=== PATIENT | female | born 1945 | race Caucasian/White ===

== ENCOUNTER 2024-09-17 14:46 | Outpatient (REF) | payer MEDICARE, SELFPAY ==
[2024-09-17 18:03] LABS: Appearance Urine Clear; Color Urine Yellow; Glucose Urine UA Negative (Negative); Leukocyte Esterase Urine Large (3+) (Negative); Nitrite Urine Negative (Negative); PH 5.5 (5.0-9.0); UMIC TRIGGER UACC YES; Urine Blood Small (1+) (Negative); Urine Ketones Negative (Negative); Urine Protein Negative (Neg-Trace)
[2024-09-17 18:29] LABS: Bacteria Urine None Seen (None Seen); Hyaline Casts Urine 0-2 /LPF (0-2); RBC Urine 0-2 /HPF (0-2); UACC Culture Trigger YES; WBC Urine 0-5 /HPF (0-5)
[2024-09-17 18:33] LABS: Erythrocyte Sedimentation Rate 6 MM/HR (0-20)
== END 2024-09-17 14:47 | disposition home or self-care (01) ==
LOC: HO.MANLDS 14:46
PROVIDERS: Visit Provider Internal Medicine
DX: R51.9 Headache, unspecified (principal); R82.998 Other abnormal findings in urine
CPT/HCPCS: 36415; 81001; 85652; 87086; 87088

== ENCOUNTER 2024-10-27 13:17 | Outpatient (REF) | payer MEDICARE, SELFPAY ==
--- OUTSIDE RECORDS SUMMARY | 2024-10-27 14:35 | XMS_ITS | Data Portability ---
Author Organization [facility] Address [address] [place] [address] Assessment Encounter Date Assessment Date Assessment LastModified by Organization Details LastModified Time 12/22/2023 12/22/2023 [id number] [place] [id number] (PROPERTY SITE MANAGER) MDM MODERATE MUST MEET 2 OUT OF 3 ELEMENTS: PROBLEMS, DATA OR RISK ELEMENT 1: PROBLEMS ADDRESSED 1 OR MORE CHRONIC ILLNESS WITH EXACERBATION OR 2 OR MORE STABLE CHRONIC ILLNESSES OR 1 UNDIAGNOSED NEW PROBLEM OR 1 ACUTE ILLNESS W/SYMPTOMS OR 1 ACUTE COMPLICATED INJURY ELEMENT 2: DATA MUST MEET 1 OF 3 CATEGORIES CATEGORY 1: REVIEW OF PRIOR EXTERNAL NOTES, REVIEW OF RESULTS, ORDERING OF EACH TEST, ASSESSMENT REQUIRING INDEPENDENT HISTORIAN OR CATEGORY 2: INDEPENDENT INTERPRETATION OF TESTS BY ANOTHER PHYSICIAN OR SPECIALIST OR CATEGORY 3: DISCUSSION OF MGT OR TEST INTERPRETATION W/EXTERNAL PHYSICIAN OR SPECIALIST ELEMENT 3: RISK RISK OF COMPLICATIONS AND/OR MORBIDITY OR MORTALITY OF PATIENT MANAGEMENT PROVIDER MUST THOROUGHLY DOCUMENT EACH ELEMENT THAT IS COVERED Not available 12/22/2023 14:05:13 04/16/2024 04/16/2024 [id number] [place] [id number] (PROPERTY SITE MANAGER) MDM MODERATE MUST MEET 2 OUT OF 3 ELEMENTS: PROBLEMS, DATA OR RISK ELEMENT 1: PROBLEMS ADDRESSED 1 OR MORE CHRONIC ILLNESS WITH EXACERBATION OR 2 OR MORE STABLE CHRONIC ILLNESSES OR 1 UNDIAGNOSED NEW PROBLEM OR 1 ACUTE ILLNESS W/SYMPTOMS OR 1 ACUTE COMPLICATED INJURY ELEMENT 2: DATA MUST MEET 1 OF 3 CATEGORIES CATEGORY 1: REVIEW OF PRIOR EXTERNAL NOTES, REVIEW OF RESULTS, ORDERING OF EACH TEST, ASSESSMENT REQUIRING INDEPENDENT HISTORIAN OR CATEGORY 2: INDEPENDENT INTERPRETATION OF TESTS BY ANOTHER PHYSICIAN OR SPECIALIST OR CATEGORY 3: DISCUSSION OF MGT OR TEST INTERPRETATION W/EXTERNAL PHYSICIAN OR SPECIALIST ELEMENT 3: RISK RISK OF COMPLICATIONS AND/OR MORBIDITY OR MORTALITY OF PATIENT MANAGEMENT PROVIDER MUST THOROUGHLY DOCUMENT EACH ELEMENT THAT IS COVERED Not available 04/16/2024 11:40:53 09/17/2024 09/17/2024 Patient presente d for medication refill. Patient tolerating medication well at current dose without adverse effects. Refilled as below. Discussed plan with patient, who expressed understanding. [place] [id number] [place] [id number] (PROPERTY SITE MANAGER) MDM HIGH MUST MEET 2 OUT OF 3 ELEMENTS: PROBLEMS, DATA OR RISK ELEMENT 1: PROBLEMS 1 OR MORE CHRONIC ILLNESS W/SEVERE EXACERBATION, PROGRESSION MAY REQUIRE HOSPITAL LEVEL CARE OR 1 ACUTE OR CHRONIC ILLNESS OR INJURY THAT POSES A THREAT TO LIFE OR BODILY FUNCTION ELEMENT 2: DATA: MUST MEET 2 OF 3 CATEGORIES CATEGORY 1 REVIEW OF PRIOR EXTERNAL NOTES REVIEW OF THE RESULTS ORDERING OF EACH TEST ASSESSMENT REQUIRING INDEPENDENT HISTORIAN(S) CATEGORY 2: INDEPENDENT INTERPRETATION OF TESTS BY ANOTHER PROVIDER/SPECIALI ST CATEGORY 3: DISCUSSION OF MGT OR TEST INTERPRETATION W/EXTERNAL PHYSICIAN/SPECIAL IST ELEMENT 3: RISK HIGH RISK OF MORBIDITY FROM ADDITIONAL DIAGNOSTIC TESTING OR TREATMENT PROVIDER MUST THOROUGHLY DOCUMENT EACH ELEMENT THAT IS COVERED The patient presented to their appointment today for multiple concerns requiring moderate to high-level decision making and took over 40-45 minutes for an adequate and appropriate history, exam, assessment and treatment plan. This appointment was done with an established patient. Not available 09/17/2024 14:40:44 Plan of Treatment Reminders Order Date Submit Date Provider Last Modified By Organization Details Last Modified Time Details Appointments NEW PROBLEM 15 2024 11:00A M CHUCK MAN Not available Not available Not available NEW PROBLEM 15 2024 10:00A M DR MATHIS Not available Not available Not available ANNUAL EXAM 2024 03:00P M DR MATHIS Not available Not available Not available Lab culture, wound - facial lesion, left side of the face 2024 025 [facility], [address] [place] [address], [place], [address], 10/27/2024 11:29:53 urinalysi s complete, reflex culture 2024 025 [facility], [address] [place] [address], [place], [address], 09/20/2024 12:12:54 erythrocy te sedimenta tion rate by jerome n method 2024 [facility], [address] [place] [address], [place], [address], 09/17/2024 14:55:22 hepatic function panel, serum 2023 [facility], [address] [place] [address], [place], [address], 04/16/2024 11:50:34 Referral None recorded. Procedures None recorded. Surgeries None recorded. Imaging None recorded. Medication Orders doxycycli ne hyclate 100 mg capsule 2024 [id number], [address], [place], [id number], 10/27/2024 11:23:57 hydroxyzi ne HCl 25 mg tablet 2024 025 [facility] #51706, [address], [place], [id number], 10/08/2024 15:08:39 moexipril 15 mg tablet 2023 024 [facility] #79535, [address], [place], [id number], 04/16/2024 11:49:25 atomoxeti ne 18 mg capsule 2023 024 [facility] #77429, [address], [place], [id number], 04/16/2024 11:49:23 moexipril 15 mg tablet 2023 024 [facility], [address] [place], [address], 12/22/2023 14:06:55 Patient TargetsNo targets recorded. Patient Instructions Encounter Date Encounter Id Patient Instructions Last Modified By Organization Details Last Modified Time 12/22/2023 [id number] sleep apnea: car e instructions Not available 12/22/2023 14:06:45 high blood pressure: care instructions Not available 12/22/2023 14:06:45 learning about high blood pressure Not available 12/22/2023 14:06:45 Nonalcoholic Fat ty Liver Disease (NAFLD): Care Instructions Not available 12/22/2023 14:06:45 04/16/2024 [id number] Nonalcoholic Fat ty Liver Disease (NAFLD): Care Instructions Not available 04/16/2024 11:49:18 attention defici t hyperactivity disorder (ADHD) in adults: care instructions Not available 04/16/2024 11:49:18 Reason for Referral None Reported. Results Created Date Observation Date Name Description Value Unit Range Abnormal Flag Note LastModifiedBy Organization Detail LastModifiedTime Result Notes None recorded. Problems Name Problem SNOMED Code Status Onset Date Resolution Date Notes Provider Name and Address Organization Details Recorded Time Essential hypertens ion 96556495 Active 2017 Not Available [facility] 1 13:22:42 Non-alcoh olic fatty liver 737613990 Active 2017 Agata wh[address] 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 4 09:30:52 Blepharit is 29349453 Active 2021 Agata wharton [facility] 4 09:30:52 Contact dermatiti s 71284172 Active 2021 Agata wharton [facility] 4 09:30:58 Left bundle branch block 18483098 Active 2017 Agata wharton [facility] 4 09:30:52 Benign essential microscop ic hematuria 652755594982 109 Active 2017 Agata wharton [facility] 4 09:30:52 Generaliz ed rash 826379397 Active 2021 Agatavito Patel null, [facility] 4 09:30:59 Pruritic rash 99698827 Active 2021 Agatavito Patel null, [facility] 4 09:30:58 Lyme disease 03475675 Active 2022 Agatavito Patel null, [facility] 4 09:30:52 Attention deficit hyperacti vity disorder 809953852 Active 2023 Agatavito Patel null, [facility] 4 09:30:52 Acute pain in face 091501040 Active 2024 Darin Mathis, [address], [address], [facility] 5 14:31:52 Malodorou s urine 592903928 Active 2024 Darin Mathis, [address], [address], [facility] 5 14:37:22 Acute urinary tract infection 303364907 Active 2024 Darin Mathis, [address], [address], [facility] 5 22:45:41 Allergic reaction to drug 286347259 Active 2024 Darin Mathis, DO [address] [place] [address], [address], [facility] 5 13:43:34 Impetigo 93685426 Active 2024 CHUCK MAN [address] [place] [address], [address], [facility] 5 11:18:18 Lesion of face 962410586 Active 2024 CHUCK MAN [address] [place] [address], [address], [facility] 5 11:18:36 Notes:neck radiaition 1950 S ome problems listed in Documents: #[id number], #[id number], #[id number], #[id number], #[id number] could not be added to this patient's chart. Please review these documents and add these problems to the patient's chart manually as needed. Problem Notes None recorded. Procedures Surgical History Date Name Laterality Status Provider Name and Address Organization Details Recorded Time 05/30/20 17 Cataract Surgery completed Georgia Calle NP, S [address] [place] [address], [address], [facility] 09/09/2017 12:14:29 06/30/19 14 Date of Last Pap Smear completed Georgia Calle NP, S [address] [place] [address], [address], [facility] 05/05/2018 10:05:14 Unlisted procedure nose completed Georgia Calle NP, S [address] [place] [address], [address], [facility] 09/09/2017 12:14:02 Imaging Results None recorded. Procedure Notes None recorded. Medical Equipment None Reported. Allergies Allergen ID Allergen Name Allergen Category Reaction Reaction Severity Criticality Documentation Date Start Date Code Code System Note Provider Name and Address Organization Details Recorded Time 3873 spironola ctone medicatio n Not available Not available Not available 11/23/2019 9997 RxNorm Mel Umanzor [facility] 0 09:39:28 484 Product containin g penicilli n (product) medicatio n Not available Not available Not available 09/09/2017 43505 8001 SNOMED Georgia Calle NP, S [address] [place] [address], [address], [facility] 8 12:04:21 485 keen pepper food Not available Not available Not available 09/09/2017 UNK Georgia Calle NP, S [address] [place] [address], [address], [facility] 8 12:04:35 489 piroxicam medicatio n Not available Not available Not available 09/09/2017 8356 RxNorm Georgia Calle NP, S [address] [place], [address], [facility] 8 12:10:44 8430 bupropion Not available headache Not available low 04/16/2024 21507 RxNorm Darin Mathis, DO [address] [place], [address], [facility] 4 11:38:55 8923 Substance with sulfonami de structure and antibacte rial mechanism of action (substanc e) medicatio n rash Not available Not available 10/08/2024 57044 8003 SNOMED Darin Mathis, DO [address] [place], [address], [facility] 5 13:43:11 8924 Bactrim medicatio n Not available Not available Not available 10/08/2024 37413 9 RxNorm CHUCK MAN [address] [place], [address], [facility] 5 15:05:17 Medications Name Sig Start Date Stop Date Status Note LastModified by Organization Details LastModified Time losartan 50 mg tablet Take 1 tablet every day by oral route. 07/27 completed Not Available Not Available Not Available prednisone 10 mg tablet 40 mg x 3 days30 mg x 3 days20 mg x 3 days 10 mg x 3 days 11/16 completed Not Available Not Available Not Available doxycycline hyclate 100 mg capsule Take 1 capsule twice a day by oral route for 7 days. 2024 active Not Available Not Available Not Avai lable chlorthalid one 15 mg tablet Take 1 tablet every day by oral route for 30 days. 07/24 completed Not Available Not Available Not Available moexipril 7.5 mg tablet TAKE 1 TABLET BY MOUTH EVERY DAY 09/01 completed Not Available Not Available Not Available azithromyci n 250 mg tablet TAKE 2 TABLETS (500 MG) BY ORAL ROUTE ONCE DAILY FOR 1 DAY THEN 1 TABLET (250 MG) BY ORAL ROUTE ONCE DAILY FOR 4 DAYS 04/16 completed Not Available Not Available Not Available acetazolami de ER 500 mg capsule,ext ended release TAKE 1 CAPSULE BY MOUTH EVERY DAY FOR 10 DAYS DIRECTED 07/24 completed Not Available Not Available Not Available diltiazem CD 240 mg capsule,ext ended release 24 hr TAKE 1 CAPSULE BY MOUTH EVERY DAY active Not Available Not Available No t Available clindamycin HCl 150 mg capsule TAKE 1 CAPSULE BY MOUTH EVERY 8 HOURS UNTIL GONE 04/16 completed Not Available Not Available Not Available chlorthalid one 25 mg tablet TAKE 1 TABLET BY MOUTH EVERY DAY 07/24 completed Not Available Not Available Not Available ciprofloxac in 250 mg tablet 10/21 completed Not Available Not Available Not Available amlodipine 5 mg tablet Take 1 tablet every day by oral route. 08/25 completed Not Available Not Available Not Available ciprofloxac in 500 mg tablet TAKE 1 TABLET BY MOUTH EVERY 12 HOURS FOR 14 DAYS 08/07 completed Not Available Not Available Not Available sulfamethox azole 800 mg-trimetho prim 160 mg tablet TAKE 1 TABLET BY MOUTH EVERY 12 HOURS FOR 7 DAYS 10/08 completed Not Available Not Available Not Available spironolact one 25 mg tablet 03/14 completed Not Available Not Available Not Available ketorolac 0.5 % eye drops INSTILL 1 DROP INTO THE RIGHT EYE THREE TIMES DAILY FOR 3 WEEKS FOLLOWING SURGERY 08/23/2111/16 completed Not Available Not Available Not Available diltiazem ER 120 mg capsule,24 hr,extended release TAKE ONE CAPSULE BY MOUTH EVERY DAY 04/21 completed Not Available Not Available Not Available benzonatate 100 mg capsule TAKE 1 CAPSULE BY MOUTH 2 TO 3 TIMES PER DAY NEEDED FOR COUGH 09/17 completed Not Available Not Available Not Available cephalexin 500 mg capsule TAKE 1 CAPSULE BY MOUTH EVERY 6 HOURS FOR 7 DAYS 11/16 completed Not Available Not Available Not Available moexipril 15 mg tablet TAKE 1 AND ONE-HALF TABLET BY MOUTH EVERY DAY active Not Available Not Available No t Available captopril 50 mg tablet Take 1 tablet every day by oral route for 30 days. active Not Available Not Available No t Available bupropion HCl 75 mg tablet TAKE 1 TABLET BY MOUTH TWICE DAILY 04/16 completed Not Available Not Available Not Available hydrochloro thiazide 12.5 mg capsule TAKE 1 CAPSULE BY MOUTH EVERY DAY 04/30 completed Not Available Not Available Not Available betamethaso ne dipropionat e 0.05 % topical cream APPLY A THIN LAYER TO THE AFFECTED AREA(S) BY TOPICAL ROUTE ONCE DAILY 11/16 completed Not Available Not Available Not Available omeprazole 20 mg capsule,del ayed release TAKE 1 CAPSULE BY MOUTH EVERY DAY 07/24 completed Not Available Not Available Not Available diltiazem CD 120 mg capsule,ext ended release 24 hr 04/21 completed Not Available Not Available Not Available hydroxyzine HCl 25 mg tablet TAKE 1 TABLET BY MOUTH TWICE DAILY NEEDED active Not Available Not Available No t Available lisinopril 5 mg tablet Take 1 tablet every day by oral route. 08/25 completed Not Available Not Available Not Available diclofenac sodium 50 mg tablet,cody yed release TAKE 1 TABLET BY MOUTH TWICE DAILY FOR 15 DAYS 02/21 completed Not Available Not Available Not Available metoprolol succinate ER 25 mg tablet,exte nded release 24 hr TAKE 1 TABLET BY MOUTH EVERY DAY active Not Available Not Available No t Available Aspir-81 mg tablet,cody yed release Take 1 tablet every day by oral route. 04/25 completed Not Available Not Available Not Available methylpredn isolone 4 mg tablets in a dose pack FOLLOW PACKAGE DIRECTION S active Not Available Not Available No t Available labetalol 100 mg tablet TAKE 1 TABLET BY MOUTH EVERY MORNING AND 1 AND 1/2 TABLET IN THE AFTERNOON . active Not Available Not Available No t Available doxycycline hyclate 100 mg tablet TAKE 1 TABLET BY MOUTH TWICE DAILY 11/16 completed Not Available Not Available Not Available atomoxetine 18 mg capsule TAKE 2 CAPSULE S BY MOUTH TWICE DAILY X 30 DAYS active Not Available Not Available No t Available vitamin E qd active Not Available Not Leslie ilable Not Available Fish Oil active Not Available Not Avai lable Not Available labetalol 50mg qd 04/06 completed Not Available Not Available Not Available Flax Seed Oil 03/14 completed Not Available Not Available Not Available Calcium 500 1 po daily active Not Available Not Available No t Available CoQ-10 02/21 completed Not Available Not Available Not Available B12 active Not Available Not Availa ble Not Available Fluzone High-Dose 3530-7472 (PF) 180 mcg/0.5 mL intramuscul ar syringe 03/29 completed Not Available Not Available Not Available Fluzone High-Dose (PF) 180 mcg/0.5 mL intramuscul ar syringe 02/21 completed Not Available Not Available Not Available BinaxNOW COVID-19 Ag Self Test kit TEST DIRECTED TODAY 11/16 completed Not Available Not Available Not Available Vitals Date Recorded Body height Body mass index (BMI) Body weight Heart rate Oxygen saturation Oxygen saturation in Arterial blood by Pulse oximetry Systolic blood pressure Diastolic blood pressure Provider Name and Address Organization Details Last Updated DateTime 4 157.48 cm 33.8 kg/m2 24285.5 9 g 73 /min 97 % 97 % 142 mm[Hg] 84 mm[Hg] Agata [facility] 4 13:45:34 Date Recorded Body height Body mass index (BMI) Body weight Heart rate Oxygen saturation Oxygen saturation in Arterial blood by Pulse oximetry Systolic blood pressure Diastolic blood pressure Provider Name and Address Organization Details Last Updated DateTime 4 157.48 cm 32.9 kg/m2 39455.6 3 g 86 /min 96 % 96 % 140 mm[Hg] 100 mm[Hg] Rosa [facility] 4 11:31:34 Date Recorded Body height Body mass index (BMI) Body weight Heart rate Oxygen saturation Oxygen saturation in Arterial blood by Pulse oximetry Systolic blood pressure Diastolic blood pressure Provider Name and Address Organization Details Last Updated DateTime 5 157.48 cm 31.3 kg/m2 53960.7 3 g 68 /min 94 % 94 % 162 mm[Hg] 98 mm[Hg] Agata [facility] 5 14:22:47 Date Recorded Body height Provider Name an d Address Organization Details Last Updated DateTime 10/08/2024 157.48 cm Agata Pihllips [facility] 10/08/2024 14:56:34 Date Recorded Body height Systolic blood pressure Diastolic blood pressure Provider Name and Address Organization Details Last Updated DateTime 10/27/2024 157.48 cm 118 mm[Hg] 82 mm[Hg] Agata lees [facility] 10/27/2024 11:08:30 Social History Question Answer Notes LastModified by Organizat ion Details LastModified Time Tobacco Smoking Status Never Smoker Not Available [facility] 05/02/2020 03:36:23 What Was The Date Of Your Most Recent Tobacco Screening? 10/27/2024 [email or web address] Information not available 10/27/2024 Sex: Unknown Functional Status None recorded. Mental Status None recorded. Family History Nothing Reported. Medical History No medical history recorded. Gynecological History Statement/Question Response Menses Monthly N If Post Menopausal, Age at Menopause 43 HPV Vaccine N Date of Last Pap Smear 06/30/2013 Age at Menarche 14 Age at First Child 35 Obstetrics History GPAL:G 1 P 1 0 0 1 Type Value Full Term 1 Living 1 Total 1 Immunizations Vaccine Type Date Status Note Provider Nam e and Address Organization Details Recorded Time COVID-19, mRNA, LNP-S, PF, 30 mcg/0.3 mL dose 1 completed Not Available [facility] 01/13/2023 13:18:55 COVID-19, mRNA, LNP-S, PF, 30 mcg/0.3 mL dose 1 completed Not Available [facility] 01/13/2023 13:18:55 Influenza, split virus, quadrivalent, preservative 1 completed Not Available [facility] 01/13/2023 13:18:55 Influenza, split virus, quadrivalent, preservative 2 completed Not Available [facility] 01/13/2023 13:18:55 COVID-19, mRNA, LNP-S, bivalent, PF, 10 mcg/0.2 mL dose 2 completed Not Available [facility] 01/13/2023 13:18:55 Influenza, split virus, quadrivalent, preservative 8 completed Not Available [facility] 01/13/2023 13:18:55 Influenza, split virus, quadrivalent, preservative 9 completed Not Available [facility] 01/13/2023 13:18:55 Influenza, adjuvanted, trivalent, PF 8 completed Not Available [facility] 01/13/2023 13:18:55 Past Encounters Encounter ID Performer Location Encounter Start Date Encounter Closed Date Diagnosis/Indication Diagnosis SNOMED-CT Code Diagnosis ICD10 Code Diagnosis Note [id number] Darin Mathis [facility] [address] [facility], [place] [address] 10/21/2017 08:55:04 10/21/2017 09:38:25 Hypertensive disorder 03377443 I10 stable, back in weight watchers using gazelle at home, infrequent ly Anxiety ab out loss of memory 904555785 F41.8 see MMSE [id number] Darin Mathis [facility] [address] [facility], [place] [address] 04/21/2018 08:56:14 04/21/2018 09:28:03 Lesion of skin of face 1910368100 06 L98.9 M? ? ?ni? ? ?re's disease 55756448 H81.09 no complaints Obstructiv e sleep apnea syndrome 89201686 G47.33 compliant with benefit noted Non-alcoho lic fatty liver 652523842 K76.0 Essential hypertension 44534975 I10 well controlled History of radiation therapy 766222011 Z92.3 for enlarged tonsils as child [id number] Darin Mathis [facility] [address] [facility], [place] [address] 05/05/2018 09:54:46 05/05/2018 13:19:09 Essential hypertension 76571941 I10 well controlled Non-alcoho lic fatty liver 440241193 K76.0 On examina tion - breast lump palpated 155568382 N63.0 Gynecologi c examination 23510205 Z01.411 Cystocele without uterine prolapse 22245332 N81.10 [id number] Darin Mathis [facility] [address] [facility], [place] [address] 03/29/2019 15:30:56 03/29/2019 16:17:02 Essential hypertension 50641152 I10 relates is doing well overall Effects of high altitude 72633627 T70.29XA will be starting her med several days before and during and 2 days afterwards after we discussed this at length Gastroesop hageal reflux disease 580493141 K21.9 Traveler's diarrhea 1184 0006 A04.1 will provide with cipro Abdominal pain 97633279 R10.9 gets bloating etc told her to apread out her eating also we can do gastric emtying scan if persists Cough 07480395 R05 pt will hold her moexipril and call me in a week [id number] Darin Mathis [facility] [address] [facility] [address] 07/28/2019 16:27:21 07/30/2019 09:29:11 Viral upper respiratory tract infection 816343256 J06.9 will be treated conserv and i have called [place] [facility] and they agree that she was there too early to worry about the recent coronaviru s outbreak [id number] Darin Mathis [facility] [address] [facility],[place] [address] 08/25/2019 09:48:17 08/25/2019 10:38:09 Essential hypertension 72911903 I10 will d/c amlodipine due to the pt getting rashes will start metoprolol succinate and recheck Sinusitis 13624543 J32.9 pt is most probably suffering from sinusitis due to the prolonged period of time she has been ill as well as her symtpom profile will be starting her on Z-Wagner pt has been instructed on how to take the medication [id number] Darin Mathis [facility] [address] [facility] [facility] [address] 09/07/2019 09:49:34 09/07/2019 10:17:52 Essential hypertension 50470646 I10 will continue the metoprolol for another two weeks as per pt request and recheck again to see if BP is high in two weeks will increase dose at next appt. if still high informed pt to look out for side effects of very high BP and to call if she experience s any in the meantime [id number] Darin Mathis [facility] [address] [facility] [address] 09/21/2019 09:02:06 09/21/2019 11:18:16 Essential hypertension 65618121 I10 pt had side effects and poor control with metoprolol will switch to labetalol 100 mg starting once a day for a week and switch to one twice a day after that and see how pt reacts to it will have pt f./u in two-four weeks to check BP pt understand s this [id number] Darin Mathis [facility] [address] [facility],[place] [address] 10/15/2019 09:01:23 10/15/2019 09:52:05 Essential hypertension 35370967 I10 the patient BP is slowly decreasing she has minimal side effects that are tolerable will keep her on it for another two weeks and then f/u to see if her BP has lowered more will see if her side effects have diminished [id number] Darin Mathis [facility] [address] [facility],[place] [address] 10/22/2019 13:59:03 10/22/2019 14:58:25 Hypertensive disorder 76686130 I10 HTN that does not respond to medication after several different trials of medication s Acute sinusitis 12129893 J01.90 will treat with Z-wagner for 5 days [id number] Darin Mathis [facility] [address] [facility],[place] [address] 11/01/2019 10:29:25 11/01/2019 11:22:26 Essential hypertension 93896539 I10 the pt is still having high readings of BP, patricia at night today in office she is 174/94 yesterday > 144/76, 139/79 highest reported 160/85 has a f/u with Dr. Kwok in a few weeks and she will discuss side effects of medication s with him at that point will wait to see if body adjusts to new dosage of medication [id number] Darin Mathis [facility] [address] [facility],[place] [address] 11/15/2019 09:57:50 11/15/2019 11:02:47 Essential hypertension 76661629 I10 will f/u with daughter Dr. Kwok tomorrow and see what he would like to do about possible medication switch given adverse reactions to labetalol BP is 132/80 today which is much better than two weeks ago [id number] Darin Mathis DO [facility] Internal Medicine [address] [facility] [address],[place] [address] 12/06/2019 09:29:24 12/06/2019 09:54:55 Essential hypertension 33370102 I10 f/u with Dr. Kwok on Friday and see what he says in terms of side effects will let me know what happens [id number] Darin Mathis DO [facility] Internal Medicine [address] [facility] [address],[place] [address] 01/17/2020 09:45:46 01/17/2020 11:11:14 Essential hypertension 98290872 I10 has no f/u with Dr. Kwok, not impressed with him as she states she told him her concerns and side effects but he just told her to ignore them and lose weight due to the effect these side effects are having on her day to day life we will taper her off medication and see if there is improvemen t the pt agrees with this she will f/u if needed and if she does not improve [place] [id number] Darin Mathis DO [facility] Internal Medicine [address] [facility],[place] [address] 02/14/2020 09:32:44 02/14/2020 10:02:20 Essential hypertension 95199583 I10 BP actually pretty stable esteban pardo decreasing the dose will fu in a month Lower abdominal pain 543 5623224 R10.30 RLQ pain intermitte nt will keep diary for when this occurs [id number] Darin Mathis DO [facility] Internal Medicine [address] [facility] [address],[place] [address] 03/14/2020 11:14:37 03/14/2020 11:47:21 Epigastric pain 87473347 R10.13 will start work up to r/o anything concerning Essential hypertension 35249524 I10 BP is high today, but actually better than her reading this morning which was 176/91 so it has come down will discuss with MB about possible medication s we could try for now want her to come completely off the labetalol [id number] Darin Mathis [facility] [address] [facility],[place] [address] 07/18/2020 11:45:50 07/18/2020 12:10:09 Pain of left hip joint [id number] 93443 M25.552 will follow up after XR and discuss next plan of action may need MRI or ortho fu depending on what the XR shows Essential hypertension 18329310 I10 patient BP elevated again today, will double her dose of her current medication tolerable for patient right now, but if she develops cough again will have to stop and figure out what else may work for patient, but she has side effects to most HTN medication s [id number] Darin Mathis [facility] [address] [facility] [address] 02/21/2021 09:11:58 02/21/2021 10:09:17 Essential hypertension 62415355 I10 relates is bouncing around at timesshe does take moexipril 15mg but we are going to need to poss add anothershe will be checking bp at home Obstructiv e sleep apnea syndrome 35637377 G47.33 uses daily Localized swelling of right lower leg [id number] 2350255 R22.41 we need to make sure no DVT present US is ordered [id number] Darin Mathis [facility] Internal [facility] [address] [facility],[address] [facility] [address] 03/28/2021 08:20:28 03/28/2021 11:31:41 Essential hypertension 49878273 I10 relates is bouncing around at timesshe does take moexipril 15mg but we are going to need to poss add anothershe will be checking bp at home Benign ess ential microscopic hematuria 0757107679 07922 R31.1 seems to be stable Non-alcoho lic fatty liver 942405841 K76.0 currently non issue will cont to follow lab Obstructiv e sleep apnea syndrome 77145979 G47.33 uses daily cpap and still gets tired during afternoon uses every day [id number] Darin Mathis [facility] [address] [facility] [place] [address] 04/25/2021 16:27:53 04/27/2021 16:43:35 Essential hypertension 34254472 I10 BP elevated today, checked three timesbefor e visit was 165/90, in office 160/90will discuss with MB switching out HTCZ to chlorithia done to see if more effective Effects of high altitude 33331053 T70.20XA will treat for altitude sickness prior to vacation Traveler's diarrhea 1184 0006 A04.1 given in case she develops while [place] of the [place] Gastroesop hageal reflux disease 958363989 K21.9 will give prior to trip [id number] Darin Mathis [facility] Medicine [address] [place] [address],[place], [place] 7 08/07/2021 13:26:29 08/07/2021 16:41:29 Pre-surgery evaluation 272188360 Z01.818 The patient was seen in the office today for pre-op evaluation . All medical conditions on patient's problem list were addressed and are currently stable, no interventi on needed at this time. Based on history and physical performed, the patient is cleared for surgery. Essential hypertension 49180350 I[address] Kwok for blood pressure control Obstructiv e sleep apnea syndrome 56556999 G47.33 stable on CPAP [id number] Darin Mathis [facility] [address] [place] [address] 12/25/2021 14:00:29 12/25/2021 14:38:02 Blepharitis 96827462 H00.011 will start on Keflex 500 mg TID Contact dermatitis 53445 004 L23.0 will restart on prednisone [id number] Darin Mathis [facility] 179 [facility] [place] 7 12/28/2021 08:37:42 12/28/2021 13:47:32 Blepharitis 65316448 H00.011 resolved Contact dermatitis 61450 004 L23.0 improved [id number] Darin Mathis [facility] [address] [facility] [place] [address] 11/17/2023 14:21:55 11/17/2023 15:03:48 Essential hypertension 42094089 I10 relates is bouncing around at timesshtoshia does take moexipril 15mg but we are going to need to poss add anothershe will be checking bp at home Depression screening 171 665367 Z13.31 Negative Attention deficit hyperactivity disorder 238739306 F90.9 [id number] Darin Mathis [facility] [address] [facility] [address],[place] [address] 12/22/2023 13:39:08 12/22/2023 14:12:33 Essential hypertension 63895075 I10 bp is better pt feels better she relates that benedict cannot get her bp med in until feb we will try to get from [place] does take moexipril 15mg but we are going to need to poss add anothershe will be checking bp at home Non-alcoho lic fatty liver 640005658 K76.0 currently non issue will cont to follow lab Obstructiv e sleep apnea syndrome 40577291 G47.33 uses daily cpap and still gets tired during afternoon uses every day Depression screening 171 756235 Z13.31 Negative [id number] Darin Mathis [facility] [address] [facility],[place] [address] 04/16/2024 11:24:43 04/16/2024 11:56:21 Essential hypertension 64068183 I10 bp is better pt feels better she relates that benedict cannot get her bp med in until feb we will try to get from [place] does take moexipril 15mg but we are going to need to poss add anothershe will be checking bp at home Non-alcoho lic fatty liver 705289429 K76.0 currently non issue will cont to follow lab Attention deficit hyperactivity disorder 683650108 F90.9 did not tolerate the bupropion this is dc'd [id number] Darin Mathis [facility] [address] [facility] [address],[place] [address] 09/17/2024 14:15:09 09/17/2024 14:46:57 Renewal of prescription 717788651 Z76.0 utd Depression screening 171 599817 Z13.31 Negative Essential hypertension 10531254 I10 will be restarting moexpril again as her bp is still running high Acute pain in face 62594 7001 R51.9 poss trigeminal neuralgia v TA as it seems to initiate in the temporal region but travels along the opthalmic br of trigem distributi on towards the corner of her eye Malodorous urine 1834063 01 R82.998 [id number] Darin Mathis [facility] [address] [facility],[place] [address] 10/08/2024 14:55:47 10/11/2024 11:00:17 Allergic reaction to drug 049001442 T50.905A start medrol that sameer orderedpro bably a reaction to bactrimadd ed to chart Pruritic rash 55979283 L 28.2 for sig itching [id number] Darin Mathis [facility] [address] [facility] [address] 10/27/2024 10:54:56 10/27/2024 11:30:31 Depression screening 516900036 Z13.31 negative Impetigo 82591538 L01.00 will start on oral abximpetig o vs staph infectionh as purulent discharge Lesion of face 533520233 L98.9 wound culture will be sent Health Concerns Section Related Observation LastModified by Organization Detai ls LastModified Time None Recorded Concern Status LastModified by Organization Details LastModified Time None Recorded Advance Directives Directive None Recorded Payers Encounter Date Sequence Insurance Name Policy Number Policy Nunez Covered Member ID Nunez Member ID Guarantor Name 12/22/2023 1 [employer] [facility] (MEDICARE REPLACEMENT PPO) [id number] Patrici Izatt [id number] Mee Izatt 12/22/2023 2 () Mee L Izatt [id number] Mee Izatt 04/16/2024 1 [employer] [facility] (MEDICARE REPLACEMENT PPO) [id number] Patrici Izatt [id number] Mee Izatt 04/16/2024 2 () Mee L Izatt [id number] Mee Izatt 09/17/2024 1 [place] PPO) [id number] Patrici Izatt [id number] Mee Izatt 09/17/2024 2 () Mee L Izatt [id number] Mee Izatt 10/08/2024 1 [place] PPO) [id number] Patrici Izatt [id number] Mee Izatt 10/08/2024 2 () Mee L Izatt [id number] Mee Izatt 10/27/2024 1 [place] PPO) [id number] Patrici Izatt [id number] Mee Izatt 10/27/2024 2 () Mee L Izatt [id number] Mee Izatt Notes Date Note Type Note Provider Name and Address Organization Details Recorded Time 4 text/htm l Care Management - HypertensionReported bypatient.Self Care:not under emotional stress Severity:symptoms are improving; does not interfere with daily activities Associated Symptoms:no dizziness; no lightheadedness; no chest pain; no shortness of breath; no palpitations; no edema; no calf muscle cramps; no blurred vision; no confusion; no headaches; no fatigue feeeling better overall head and thinking id betterlooks goodrelates that she only tolerates moexipril and that [facility] doesnt carry it Darin Mathis DO [address] [place] [address], [address], [facility] Internal Medicine 12/22/2023 14:10:00 4 text/htm l believe she iss having prob from the bupropionhaving an issue w side effects headaches jitters unease Darin Mathis DO [address] [place] [address], [address], [facility] Medicine 04/16/2024 11:53:18 5 text/htm l here fpr rechk has prob in left earhaving foul smell urinehas pain in left templealso having dry mouth Darin Mathis DO [address] [facility], [place], [address], [facility] 09/17/2024 14:41:04 5 text/htm l c/o rash the patient reports she developed a facial rash and rash on her handsmaculopapular rash, reports very itchy, skin feels tightthe patient denies any sig pain or electrical/burning sensation was just on bactrim for a UTI, about a 10 day course per ptcould have been an adverse reaction Mb sent in [employer] prior to her appt today recommended adding hydroxyzine for the itching as wellkeep area clean and drywill update me or mb on friday [facility] [address] [place], [address], [facility] Internal [facility] 10/08/2024 15:14:49 5 text/htm l c/o facial lesion impetigo: looks like infection, staph vs impetigohoney colored crusting around the mouth, inflammation and purulent discharge will send out for culture no inciting incident or exposure depression screening: The patient denies little pleasure in activities they find enjoyable, feeling depressed, difficulties sleeping, feeling tired or having little energy, change in appetite, feeling guilty, overwhelmed or unmotivated. The patient denies suicidal ideation, thoughts of hurting themselves or others. Their mood is appropriate, they show good judgement and clear understanding of the conversation. They are orientated to time, place and person. They are not expressing any concerning thoughts or actions that would need further investigation and treatment for mental health. [facility] [address] [place], [address], [facility] Internal Medicine 10/27/2024 11:30:30 OBGyn Episode No OBEpisode recorded.
--- OUTSIDE RECORDS SUMMARY | 2024-10-27 14:35 | XMS_ITS | Encounter Summary ---
Author Organization [facility], Address [address] [place] [address] Phone Care Team Providers Care Gate Manager Name Role Phone Darin Correa DO Primary Care Provider [phone] Encounter Details Date Type Department Care Team (Late st Contact Info) Description 01/02/2023 Documentation Only [facility], - Collette Becerra [address] [facility] [address] [place] [id number] Renetta Kwok MD Social History Tobacco Use Types Packs/Day Years Used Date Smoking Tobacco: Never Comments Unknown Sex and Gender Information Value Date Recorded Sex Assigned at Not on file Legal Sex Female 8:31 AM EDT Gender Identity Not on file Sexual Orientation Not on file documented as of this encounter Plan of Treatment Not on file documented as of this encounter Visit Diagnoses Not on filedocumented in this encounter Care Teams Gate Manager Relationship Specialty Start Date End Date Darin Correa DO [address] [facility] [place] [address] PCP - General Internal Medicine 10/26/19 documented as of this encounter
--- OUTSIDE RECORDS SUMMARY | 2024-10-27 14:35 | XMS_ITS | Continuity of Care Document ---
Author Organization [facility], [facility] Address [address] [place] [place] [address] [place] [address] Assessment No assessment recorded. Plan of Treatment Reminders Order Date Submit [...] left side of the face 2024 025 [facility], [address] [place] [address], [place], [address], 10/27/2024 11:29:53 Referral None recorded. Procedures None recorded. Surgeries None recorded. Imaging None recorded. Medication Orders doxycycli ne hyclate 100 mg capsule 2024 025 [id number], [address] [place], [place], [id number], 10/27/2024 11:23:57 Patient TargetsNo targets recorded. Patient InstructionsNo instructions recorded. Reason for Referral None Reported. 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 2017 [facility] 4 09:30:52 Blepharit is 49817350 Active 2021 [facility] 4 09:30:52 Contact dermatiti s 12765493 Active 2021 [facility] 4 09:30:58 Left bundle branch block 79763664 Active 2017 [facility] 4 09:30:52 Benign essential microscop ic hematuria 419409036614 109 Active 2017 [facility] 4 09:30:52 Generaliz ed rash 962013986 Active 2021 [facility] 4 09:30:59 Pruritic rash 22014536 Active 2021 [facility] 4 09:30:58 Lyme disease 97247840 Active 2022 [facility] 4 09:30:52 Attention deficit hyperacti vity disorder 601523725 Active 2023 [facility] 4 09:30:52 Acute pain in face 953966355 Active 2024 Darin Mathis, DO [address] [place] [address], [phone], [place] [facility] 5 14:31:52 Malodorou s urine 283361911 Active 2024 Darin Mathis, DO [address] [place] [address], [address], [place] [facility] 5 14:37:22 Acute urinary tract infection 559772728 Active 2024 Darin Mathis, DO [address] [place] [address], [address], [facility] [place] 5 22:45:41 Allergic reaction to drug 627127252 Active 2024 Darin ChesterCat Madeline, DO [address] [place] [address], [address], [facility] [place] 5 13:43:34 Impetigo 59156042 Active 2024 CHUCK MAN [address] [place] [address], [address], [facility] 5 11:18:18 Lesion of face 215398003 Active 2024 CHUCK MAN [address] [place] [address], [address], [facility] 5 11:18:36 Notes:neck radiaition [address] ome problems listed in Documents: #[id number], #[id number], #[id number], #[id number], #[id number] could not be added to this patient's chart. Please review these documents and add these problems to the patient's chart manually as needed. Problem Notes None recorded. Procedures Surgical History Date Name Laterality Status Provider Name and Address Organization Details Recorded Time 05/30/20 17 Cataract Surgery completed Georgia Calle NP, S [address] [place] [address], [phone], [facility] 09/09/2017 12:14:29 06/30/19 14 Date of Last Pap Smear completed Georgia Calle NP, S [address] [place] [address], [address], [facility] [place] 05/05/2018 10:05:14 Unlisted procedure nose completed Georgia Calle NP, S [address] [place] [address], [phone], [facility] 09/09/2017 12:14:02 Imaging Results None recorded. Procedure Notes None recorded. Medical Equipment None Reported. Allergies Allergen ID Allergen Name Allergen Category Reaction Reaction Severity Criticality Documentation Date Start Date Code Code System Note Provider Name and Address Organization Details Recorded Time 3873 spironola ctone medicatio n Not available Not available Not available 11/23/2019 9997 RxNorm Mel Umanzor [facility] 0 09:39:28 484 Product containin g penicilli n (product) medicatio n Not available Not available Not available 09/09/2017 97538 8001 SNOMED Georgia Calle NP, S [address] [place] [address], [phone], [facility] [place] 8 12:04:21 485 keen pepper food Not available Not available Not available 09/09/2017 34274 UNK Georgia Calle NP, S [address] [place] [address], 7, [facility] 8 12:04:35 489 piroxicam medicatio n Not available Not available Not available 09/09/2017 8356 RxNorm Georgia Calle NP, S [address] [place] [address], [address], [facility] 8 12:10:44 8430 bupropion Not available headache Not available low 04/16/2024 80126 RxNorm Darin HenrikCat Madeline, DO [address] [place], [address], [facility] [place] 4 11:38:55 8923 Substance with sulfonami de structure and antibacte rial mechanism of action (substanc e) medicatio n rash Not available Not available 10/08/2024 03950 8003 SNOMED Darin Mathis, DO [address] [place] [address], 7, [facility] [place] 5 13:43:11 8924 Bactrim medicatio n Not available Not available Not available 10/08/2024 27955 9 RxNorm MYRNA ROONEY, CHUCK [address] [place], [address], [facility] [place] 5 15:05:17 Medications Name Sig [...] 1 tablet every day by oral route. 10/27 /2021 completed Not Available Not Available Not Available [...] Not Availa ble Not Available Fluzone High-Dose 1093-3670 (PF) 180 mcg/0.5 mL intramuscul ar syringe 03/29 completed Not Available Not Available Not Available Fluzone High-Dose (PF) 180 mcg/0.5 mL intramuscul ar syringe 02/21 completed Not Available Not Available Not Available BinaxNOW COVID-19 Ag Self Test kit TEST DIRECTED TODAY 11/16 completed Not Available Not Available Not Available Vitals Date Recorded Body height Systolic blood pressure Diastolic blood pressure Provider Name and Address Organization Details Last Updated DateTime 10/27/2024 157.48 cm 118 mm[Hg] 82 mm[Hg] [facility] 10/27/2024 11:08:30 Social History Question Answer Notes LastModified by Organizat ion Details LastModified Time Tobacco Smoking Status Never Smoker Not Available [facility] 05/02/2020 03:36:23 What Was The Date Of [...] mcg/0.3 mL dose 1 completed Not Available [facility] 01/13/2023 13:18:55 COVID-19, mRNA, LNP-S, PF, 30 mcg/0.3 mL dose 1 completed Not Available [facility] 01/13/2023 13:18:55 Influenza, split virus, quadrivalent, preservative 1 completed Not Available [facility] 01/13/2023 13:18:55 Influenza, split virus, quadrivalent, preservative 2 completed Not Available [facility] 01/13/2023 13:18:55 COVID-19, mRNA, LNP-S, bivalent, PF, 10 mcg/0.2 mL dose 2 completed Not Available [facility] 01/13/2023 13:18:55 Influenza, split virus, quadrivalent, preservative 8 completed Not Available [facility] 01/13/2023 13:18:55 Influenza, split virus, quadrivalent, preservative 9 completed Not Available [facility] 01/13/2023 13:18:55 Influenza, adjuvanted, trivalent, PF 8 completed Not Available [facility] 01/13/2023 13:18:55 Past Encounters Encounter ID Performer Location Encounter Start Date Encounter Closed Date Diagnosis/Indication Diagnosis SNOMED-CT Code Diagnosis ICD10 Code Diagnosis Note [id number] DO [facility] [address] [facility],[place] [address] 10/08/2024 14:55:47 10/11/2024 11:00:17 Allergic reaction to drug 830597190 T50.905A start medrol that sameer orderedpro bably a reaction to bactrimadd ed to chart Pruritic rash 29023419 L 28.2 for sig itching [id number] Darin Mathis DO [facility] [address] [facility],[place] [address] 10/27/2024 10:54:56 10/27/2024 11:30:31 Depression screening 215613403 Z13.31 negative Impetigo 40366622 L01.00 will start on oral abximpetig o vs staph infectionh as purulent discharge Lesion of face 296696612 L98.9 wound culture will be sent Health Concerns Section Related Observation LastModified by Organization Detai ls LastModified Time None Recorded Concern Status LastModified by Organization Details LastModified Time None Recorded Payers Encounter Date Sequence Insurance Name Policy Number Policy Nunez Covered Member ID Nunez Member ID Guarantor Name 10/27/2024 1 [facility]: MEDICARE PPO BLUE (MEDICARE REPLACEMENT PPO) [id number] Patrici Izatt [id number] Mee Izatt 10/27/2024 2 () [facility] [id number] Notes Date Note Type Note Provider Name a nd Address Organization Details Recorded Time 10/27/2024 text/html c/o facial lesio n impetigo: looks like infection, staph vs impetigohoney [...] treatment for mental health. CHUCK MAN [address] [facility] [address] [facility], [place], [address], [facility] [place] 10/27/2024 11:30:30 OBGyn Episode No OBEpisode recorded.
--- OUTSIDE RECORDS SUMMARY | 2024-10-27 14:35 | XMS_ITS | Encounter Summary ---
Author Organization [facility], Address [address] [place] [address] Phone Care Team Providers Care Battery Hand Name Role Phone Darin Correa DO Primary Care Provider [phone] Reason for Visit * Reason Comments Med Refill Encounter Details Date Type Department Care Team (Late st Contact Info) Description 11/16/2019 Refill [facility] [place] [address] [address] [place] [id number] Renetta Kwok MD Social History Tobacco Use [...] on filedocumented in this encounter Care Teams Battery Hand Relationship Specialty Start Date End Date Darin Correa DO [address] [facility] [place] [phone] PCP - General Internal Medicine 10/26/19 documented as of this encounter
--- OUTSIDE RECORDS SUMMARY | 2024-10-27 14:35 | XMS_ITS | Clinical Summary ---
Author Organization [facility], Address [address] [facility] [facility] [address] [place] [address] Phone Care Team Providers Care Compensation Consultant Name Role Phone Darin Correa DO Primary Care Provider [phone] Allergies Active Allergy Reactions Criticality Noted Date Comments Food 02/12/2019 Green Pepper Lisinopril 10/26/2019 Losartan 10/26/2019 Metoprolol 10/26/2019 Morphine Other (see comments) 12/04/2015 Penicillins 09/19/2015 Piroxicam 02/12/2019 Spironolactone 07/25/2021 Medications Flaxseed, Linseed, (FLAX SEED OIL PO) Flax Seed Oil Act zechariah omega-3 (FISH OIL) 1000 MG capsule Fish Oil Active calcium carbonate (OS-DARIN) 1250 (500 Ca) MG chewable tablet Calcium 500 1 po daily Active cholecalciferol (VITAMIN D-3) 25 MCG (1000 UT) tablet Take 1,000 Units by mouth in the morning. Active famotidine (PEPCID) 10 MG tablet Take 10 mg by mouth if needed Active moexipril (UNIVASC) 15 MG tablet moexipril 15 mg tablet TAKE 1 TABLET BY MOUTH EVERY DAY Active VITAMIN E PO vitamin E qd Active betamethasone dipropionate 0.05 % cream betamethasone dipropionate 0.05 % topical cream Active ketorolac (ACULAR) 0.5 % ophthalmic solution ketorolac 0.5 % eye drops INSTILL 1 DROP INTO THE RIGHT EYE THREE TIMES DAILY FOR 3 WEEKS FOLLOWING SURGERY 08/23/21 Active Active Problems Problem Noted Date Diagnosed Date Essential hypertension 08/21/2021 Malignant hypertension 07/30/2021 Adult obstructive sleep apnea 10/27/2019 Benign essential microscopic hematuria 8 Hypertension 09/09/2017 Overview (10/26/2019): Last Assessment & Plan: Well-controlled on present therapy. No changes. 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 22 Immunizations Immunization Administration Dates Next Due Influenza Split High Dose Preservative Free IM 03/30/2019 Influenza, Quadrivalent, Wit h Preservative 05/01/2022,04/26/2021,03/30/2019,2018,03/30/2019,05/18/2018,05/18/2018,07/18/2017 Influenza, Trivalent, Adjuvanted 07/18/2017,06/30,07/18/2017 Pfizer SARS-COV-2 05/19/2022,09/15/2020,08/23/19 21 Family History Medical History Relation Comments Stroke Father Relation Status Comments Father Social History Tobacco Use Types Packs/Day Years Used Date Smoking Tobacco: Never Comments Unknown Sex and Gender Information Value Date Recorded Sex Assigned at Not on file Legal Sex Female 8:31 AM EDT Gender Identity Not on file Sexual Orientation Not on file Last Filed Vital Signs Vital Sign Reading Time Taken Comments Blood Pressure 132/70 01/15/2023 11:22 AM EDT Pulse 68 01/15/2023 11:22 AM EDT Temperature - - Respiratory Rate 14 01/15/2023 11:22 AM EDT Oxygen Saturation - - Inhaled Oxygen Concentration - - Weight 84.4 kg (186 lb) 01/15/2023 11:22 AM EDT Height 160 cm (5' 3 ) 01/15/2023 11:22 AM EDT Body Mass Index 32.95 01/15/2023 11:22 AM EDT Plan of Treatment Health Maintenance Due Date Last Done Comments Pneumococcal Vaccine: 50+ Years (1 of 2 - PCV) 1964 Influenza Vaccine (Season Ended) 2025 05/01/2022, 04/26/2021, 03/30/2019, Additional history exists Hepatitis B Vaccine Aged Out No longe r eligible based on patient's age to complete this topic Insurance [facility] Care Teams Compensation Consultant Relationship Specialty Start Date End Date Darin Correa DO [address] [place], [place] [address], [place] [address] PCP - General Internal Medicine 10/26/19
== END 2024-10-27 13:18 | disposition home or self-care (01) ==
LOC: HO.MANLNP 13:17
PROVIDERS: Visit Provider Physician Assistant
DX: L98.9 Disorder of the skin and subcutaneous tissue, unspecified (principal)
CPT/HCPCS: 87070; 87077; 87186; 87205

== ENCOUNTER 2024-11-30 15:44 | Outpatient (REF) | payer MEDICARE, SELFPAY ==
[2024-11-30 18:31] LABS: MANUAL DIFF FLAG NO
[2024-11-30 18:45] LABS: Basophils Absolute Auto 0.1 X10*3/uL (0.0-0.2); Basophils Percent Auto 0.7 % (0-2); Eosinophils Absolute Auto 0.2 X10*3/uL (0.0-0.4); Hematocrit 42.4 % (37.0-47.0); Hemoglobin 14.3 g/dl (12.0-16.0); Imm Gran Abs Auto 0.02 X10*3/uL (0.00-0.03); Imm Gran Pct Auto 0.3 % (0.0-0.4); Lymphocytes Absolute Auto 2.1 X10*3/uL (1.2-4.9); Lymphocytes Percent Auto 28.5 % (20-40); Mean Corpuscular HGB Conc 33.7 g/dl (31.0-35.0); Mean Corpuscular Hemoglobin 30.8 pg (27.0-33.0); Mean Corpuscular Volume 91.2 fL (80.0-98.0); Mean Platelet Volume 11.1 fL (9.4-12.3); Monocytes Absolute Auto 0.9 X10*3/uL (0.1-1.2); Monocytes Percent Auto 12.2 % (2-11); Neutrophils Absolute Auto 4.1 x10*3/uL (2.0-8.3); Neutrophils Percent Auto 55.3 % (45-73); Platelet Count 209 X10*3/uL (160-400); Red Blood Count 4.65 X10*6/uL (4.20-5.50); White Blood Count 7.3 X10*3/uL (4.8-10.8)
[2024-11-30 18:54] LABS: Alanine Aminotransferase 34 U/L (0-31); Albumin Level 4.5 g/dL (3.5-5.0); Alkaline Phosphatase 77 U/L (39-117); Anion Gap 13 (12-20); Aspartate Amino Transferase 38 U/L (5-31); Bilirubin Total 0.4 mg/dL (0.0-1.0); Blood Urea Nitrogen 11 mg/dL (9-16); Calcium 9.6 mg/dL (8.4-10.2); Carbon Dioxide 25 mmol/L (22-29); Chloride 106 mmol/L (96-108); Estimated Glomerular Filt Rate > 60; Glucose Random 123 mg/dL (60-115); Potassium 4.2 mmol/L (3.3-5.1); Sodium 140 mmol/L (135-145); Total Protein 7.2 g/dL (6.5-8.0)
[2024-11-30 19:09] LABS: Carbamazepine Tegretol 3.9 mcg/mL (5.0-12.0)
== END 2024-11-30 15:45 | disposition home or self-care (01) ==
LOC: HO.MANLDS 15:44
PROVIDERS: Visit Provider Internal Medicine
DX: Z00.00 Encounter for general adult medical examination without abnormal findings (principal); G50.0 Trigeminal neuralgia
CPT/HCPCS: 36415; 80053; 80156; 85025